=== PATIENT | male | born 1935 | race Two or more races ===

== ENCOUNTER 2020-04-05 17:10 | Inpatient (IN) | payer MEDICARE, OTHER ==
[~2020-04-05] VITALS: Ht 172.7 cm; Wt 44.4 kg
[2020-04-05] MEDS ORDERED: levoFLOXacin 750MG 150 ML IV ONE (20:15)
[2020-04-05 21:17] LABS: Basophils # (auto) 0 10 ^3/uL (0-0.2); Basophils % (auto) 0.2 % (0.0-2.0); Eosinophils # (auto) 0 10 ^3/uL (0-0.8); Hematocrit 44.4 % (41.0-53.0); Hemoglobin 15.1 g/dL (13.5-17.5); Lymphocytes # (auto) 0.7 10 ^3/uL (0.4-5.4); Lymphocytes % (auto) 8.2 % (10.0-50.0); Mean Corpuscular Hemoglobin 29.8 pg (28.0-32.0); Mean Corpuscular Hgb Conc. 33.9 g/dL (32.0-36.0); Monocytes # (auto) 0.6 10 ^3/uL (0-1.3); Neutrophils # (auto) 7.2 10 ^3/uL (1.6-8.6); Neutrophils % (auto) 84.6 % (37.0-80.0); Platelet Count (auto) 276 10^3/uL (140-450); Red Blood Cells 5.05 10^6/uL (4.5-5.90); Red Cell Distribution Width 13.8 % (11.8-14.3); White Blood Cell 8.5 10^3/uL (4.4-10.8)
[2020-04-05 21:30] LABS: Urine Amorphous Crystal FEW /hpf (None Seen); Urine Bacteria FEW /hpf (None Seen); Urine Blood 2+ /uL (Negative); Urine Mucus FEW (None Seen); Urine Specific Gravity 1.023 (1.001-1.035); Urine WBC 3 /hpf (0 - 3)
[2020-04-05 21:35] LABS: Albumin 2.8 g/dL (3.4-5.0); BUN/Creatinine Ratio 17.4; Calcium 8.2 mg/dL (8.5-10.1); Potassium 3.3 mmol/L (3.5-5.1)
[2020-04-05 21:38] LABS: Bilirubin, Total 1.2 mg/dL (0.2-1.0); Total Protein 7.3 g/dL (6.4-8.2)
[2020-04-05 21:45] LABS: INR 0.97 (0.9-1.15); Partial Thromboplastin Time 29.8 sec (23.0-31.2)
[2020-04-05] MEDS ORDERED: DOCUSATE SOD 100 MG CAP PO PRN (23:45)
[2020-04-05] MEDS ORDERED: ACETAMINOPHEN 500 MG TAB PO PRN (23:45)
[2020-04-05] MEDS ORDERED: ACETAMINOPHEN 325 MG TAB PO PRN (23:45)
[2020-04-05] MEDS ORDERED: DEXTROSE (50%) 50ML SYRG IV PRN (23:45)
[2020-04-05] MEDS ORDERED: ONDANSETRON HCL 4 MG/2 ML VIAL IV PRN (23:45)
[2020-04-06] VITALS (7 sets, daily range): BP systolic 119–169; BP diastolic 69–89
[2020-04-06] MEDS: SODIUM CHLORIDE 0.9% 1,000 ML IV SCH ×2 (00:40→18:36)
[2020-04-06] MEDS: ACCU-CHEK COMFORT CURVE STRIP VI SCH ×3 (00:40→09:49)
[2020-04-06] MEDS: InsuLIN REG 1unit/0.01ml Soln (100units/ml) SC SCH ×3 (04:00→08:00)
--- NOTE | 2020-04-06 04:29 | NUR ---
ms admit from er pt arrived awake and alert on 4L nc no distress noted or expressed. pt able to transfer from wheelchair to bed without incident. pt introduced to this nurse via desizing machine operator head end. pt updated on plan of care, oriented to room, bed control, restroom, use of call light. pt denies any pain. reports living at home with family and having hard time breathing and coughing for a few days. pt bed is locked, low and 2x rails up. call light in reach, no additional complaints or requests at this time. pt encouraged to call as needed. this nurse to round q1hr and prn.
--- NOTE | 2020-04-06 07:44 | NUR ---
OPENING SHIFT NOTE Assumed care of patient. PT is awake and a&ox4. No SOB or s/s of distress at this time. Instructed on plan of care and encouraged patient to call for assistance as needed, patient verbalized understanding. Bed is locked in lowest position, side rails x 2 are up, call light is within reach, and bed alarm is on.
[2020-04-06] MEDS: ALBUTEROL SULF HFA 90MCG INH 200DOSE IN SCH ×3 (08:59→22:02)
[2020-04-06] MEDS: ENOXAPARIN SOD 40 MG/0.4 ML SYRINGE SC SCH (09:59)
[2020-04-06] MEDS: ASCORBIC ACID 1,000 MG TAB PO SCH (09:59)
[2020-04-06] MEDS ORDERED: DOXYCYCLINE 100 MG TAB/CAP PO SCH (10:00)
[2020-04-06] MEDS: ZINC SULFATE 220mg CAP or TAB PO SCH (10:00)
[2020-04-06 10:53] LABS: Basophils # (auto) 0 10 ^3/uL (0-0.2); Basophils % (auto) 0.1 % (0.0-2.0); Eosinophils # (auto) 0 10 ^3/uL (0-0.8); Lymphocytes # (auto) 0.5 10 ^3/uL (0.4-5.4); Lymphocytes % (auto) 6.9 % (10.0-50.0); Mean Corpuscular Hemoglobin 30.5 pg (28.0-32.0); Mean Corpuscular Hgb Conc. 34.1 g/dL (32.0-36.0); Mean Corpuscular Volume 89.4 fL (80.0-100.0); Monocytes # (auto) 0.5 10 ^3/uL (0-1.3); Neutrophils # (auto) 6.6 10 ^3/uL (1.6-8.6); Nucleated Red Blood Cells % 0.1 %; Platelet Count (auto) 279 10^3/uL (140-450); Red Blood Cells 4.92 10^6/uL (4.5-5.90); Red Cell Distribution Width 13.9 % (11.8-14.3); White Blood Cell 7.5 10^3/uL (4.4-10.8)
[2020-04-06 11:12] LABS: Albumin 2.6 g/dL (3.4-5.0); Calcium 8.3 mg/dL (8.5-10.1); Potassium 3.1 mmol/L (3.5-5.1)
[2020-04-06 11:16] LABS: Bilirubin, Total 1.3 mg/dL (0.2-1.0); Total Protein 6.9 g/dL (6.4-8.2)
[2020-04-06 11:20] LABS: Magnesium 2.5 mg/dL (1.6-2.6)
[2020-04-06] MEDS ORDERED: POTASSIUM EFFERVESENT TAB 25 MEQ PO ONE (13:00)
[2020-04-06] MEDS ORDERED: ALBUTEROL SULF 2.5 MG/0.5ML(0.5%) NEB SOLN NEB PRN (13:00)
[2020-04-06] MEDS ORDERED: LACTULOSE 20Gm/30ML SOLN PO PRN (13:00)
[2020-04-06] MEDS ORDERED: ONDANSETRON HCL 4 MG/2 ML VIAL IV PRN (13:00)
[2020-04-06] MEDS ORDERED: MORPHINE SULF INJ 2 MG/ML SYRINGE 1ML IV PRN (13:00)
[2020-04-06] MEDS ORDERED: traMADol HCL 50 MG TAB PO PRN (13:00)
[2020-04-06] MEDS: CLINDAMYCIN 600MG IV 50 ML IV SCH ×2 (13:18→22:33)
[2020-04-06] MEDS ORDERED: IPRATROPIUM BROM 0.5 MG/2.5ML INH SOL NEB SCH (18:00)
[2020-04-06] MEDS ORDERED: ALBUTEROL SULF 2.5 MG/0.5ML(0.5%) NEB SOLN NEB SCH (18:00)
--- NOTE | 2020-04-07 03:00 | NUR ---
pt pulled out IV.
--- NOTE | 2020-04-07 03:10 | NUR ---
NEW IV placed at right AC, 22g. pt tolerated insertion well. one attempt
[2020-04-07 05:00] VITALS: BP 144/74
[2020-04-07] MEDS: CLINDAMYCIN 600MG IV 50 ML IV SCH ×2 (06:33→14:00)
--- NOTE | 2020-04-07 07:23 | NUR ---
closing note pt A&O4 and ambulatory. no c/o pain or distress. endorsed care to day shift RN Will.
[2020-04-07] MEDS: ALBUTEROL SULF HFA 90MCG INH 200DOSE IN SCH ×3 (07:51→22:32)
--- NOTE | 2020-04-07 08:12 | NUR ---
OPENING SHIFT NOTE Resumed care of patient. PT is awake and a&ox4. No SOB or s/s of distress at this time. PT expressed desire to leave hospital. Explained importance of current treatment plan. PT agreed. Instructed on plan of care and encouraged patient to call for assistance as needed, patient verbalized understanding. Bed is locked in lowest position, side rails x 2 are up, call light is within reach, and bed alarm is on.
[2020-04-07 09:00] VITALS: BP 146/75
[2020-04-07] MEDS: ENOXAPARIN SOD 40 MG/0.4 ML SYRINGE SC SCH (09:55)
[2020-04-07] MEDS: levoFLOXacin 250MG 50 ML IV SCH (09:55)
[2020-04-07] MEDS: ZINC SULFATE 220mg CAP or TAB PO SCH (09:55)
[2020-04-07] MEDS: SODIUM CHLORIDE 0.9% 1,000 ML IV SCH (09:56)
[2020-04-07] MEDS: ASCORBIC ACID 1,000 MG TAB PO SCH (09:56)
--- NOTE | 2020-04-07 11:31 | NUR ---
PT FOUND WITH IV PULLED OUT. CATHETER INTACT. PT IS REFUSING NEW IV PLACEMENT. WILL CONTINUE TO MONITOR.
[2020-04-07 13:00] VITALS: BP 137/85
--- NOTE | 2020-04-07 15:32 | NUR ---
MOVED PT ROOM 247B.
[2020-04-07 17:00] VITALS: BP 137/78
[2020-04-07 22:00] VITALS: BP 132/81
--- NOTE | 2020-04-07 23:30 | NUR ---
NEW IV placed at left AC 20g 1 attempt. pt tolerated insertion well.
[2020-04-08] MEDS: CLINDAMYCIN 600MG IV 50 ML IV SCH ×2 (00:02→05:43)
[2020-04-08 05:00] VITALS: BP 118/61
[2020-04-08] MEDS: SODIUM CHLORIDE 0.9% 1,000 ML IV SCH (05:20)
[2020-04-08] MEDS: ALBUTEROL SULF HFA 90MCG INH 200DOSE IN SCH ×3 (07:30→23:03)
--- NOTE | 2020-04-08 07:30 | NUR ---
Opening note Assumed care of patient from NOC RN. Patient is AOx2, no s/s of distress or SOB noted. Bed is in lowest locked position, side rails up x2 and call light is within reach. Updated patient on plan of care and reinforcement is needed. Will continue to monitor q1hr and PRN.
--- NOTE | 2020-04-08 07:34 | NUR ---
closing note pt A&O3 and ambulatory. no c/o pain or distress. endorsed care to day shift RN.
[2020-04-08 08:00] VITALS: BP 139/69
[2020-04-08] MEDS: levoFLOXacin 250MG 50 ML IV SCH (10:42)
[2020-04-08] MEDS: ASCORBIC ACID 1,000 MG TAB PO SCH (10:42)
[2020-04-08] MEDS: ENOXAPARIN SOD 40 MG/0.4 ML SYRINGE SC SCH (10:42)
[2020-04-08] MEDS: ZINC SULFATE 220mg CAP or TAB PO SCH (10:42)
--- NOTE | 2020-04-08 11:00 | NUR ---
Received call from Received call from Dr. Olson, updated MD on patient status and new orders were received. Will follow through and will continue to monitor.
[2020-04-08] MEDS ORDERED: levoFLOXacin 250 MG TAB PO ONE (11:15)
[2020-04-08] MEDS ORDERED: FUROSEMIDE 40 MG/4 ML VIAL IV ONE (11:15)
[2020-04-08 12:00] VITALS: BP 152/77
[2020-04-08 14:57] LABS: Basophils # (auto) 0 10 ^3/uL (0-0.2); Eosinophils # (auto) 0 10 ^3/uL (0-0.8); Eosinophils % (auto) 0.1 % (0.0-7.0); Hematocrit 42.9 % (41.0-53.0); Hemoglobin 14.1 g/dL (13.5-17.5); Lymphocytes # (auto) 0.3 10 ^3/uL (0.4-5.4); Lymphocytes % (auto) 4.2 % (10.0-50.0); Mean Corpuscular Hemoglobin 31.7 pg (28.0-32.0); Mean Corpuscular Hgb Conc. 32.9 g/dL (32.0-36.0); Mean Corpuscular Volume 96.5 fL (80.0-100.0); Monocytes # (auto) 0.6 10 ^3/uL (0-1.3); Monocytes % (auto) 7.8 % (0.0-12.0); Neutrophils # (auto) 6.8 10 ^3/uL (1.6-8.6); Neutrophils % (auto) 87.9 % (37.0-80.0); Nucleated Red Blood Cells % 0.1 %; Platelet Count (auto) 313 10^3/uL (140-450); Red Blood Cells 4.44 10^6/uL (4.5-5.90); Red Cell Distribution Width 14.5 % (11.8-14.3); White Blood Cell 7.8 10^3/uL (4.4-10.8)
[2020-04-08 15:16] LABS: BUN/Creatinine Ratio 33.3; Potassium 3.1 mmol/L (3.5-5.1)
[2020-04-08 17:00] VITALS: BP 136/81
--- NOTE | 2020-04-08 19:01 | NUR ---
end of shift note Endorsed care to NOC RN. No s/s of distress noted.
--- NOTE | 2020-04-08 21:00 | NUR ---
pt o2 saturation maintaining at 86% on 3Lnc. pt now placed on 5L oxymizer. rechecked o2 saturation, 97% on 5L oxymizer.
[2020-04-08 22:00] VITALS: BP 139/93
[2020-04-08] MEDS: ENOXAPARIN SOD 60 MG/0.6 ML SYRINGE SC SCH (23:42)
--- NOTE | 2020-04-09 04:40 | NUR ---
pt O2 saturation maintaining at 85% on 5L oxymizer. Increased to 11L oxymizer. rechecked o2 saturation, 92% on 11L oxymizer.
[2020-04-09 05:10] VITALS: BP 148/75
[2020-04-09 06:00] LABS: Basophils # (auto) 0 10 ^3/uL (0-0.2); Basophils % (auto) 0.1 % (0.0-2.0); Eosinophils # (auto) 0 10 ^3/uL (0-0.8); Hematocrit 38.5 % (41.0-53.0); Lymphocytes # (auto) 0.3 10 ^3/uL (0.4-5.4); Lymphocytes % (auto) 4.8 % (10.0-50.0); Mean Corpuscular Hemoglobin 31.4 pg (28.0-32.0); Mean Corpuscular Hgb Conc. 33.9 g/dL (32.0-36.0); Mean Corpuscular Volume 92.5 fL (80.0-100.0); Monocytes # (auto) 0.6 10 ^3/uL (0-1.3); Monocytes % (auto) 7.8 % (0.0-12.0); Neutrophils # (auto) 6.4 10 ^3/uL (1.6-8.6); Neutrophils % (auto) 87.3 % (37.0-80.0); Platelet Count (auto) 334 10^3/uL (140-450); Red Blood Cells 4.16 10^6/uL (4.5-5.90); White Blood Cell 7.3 10^3/uL (4.4-10.8)
[2020-04-09 06:26] LABS: Calcium 7.6 mg/dL (8.5-10.1)
[2020-04-09 06:30] LABS: BUN/Creatinine Ratio 34.8; Bilirubin, Total 0.8 mg/dL (0.2-1.0); Total Protein 5.9 g/dL (6.4-8.2)
[2020-04-09 06:39] LABS: Potassium 2.9 mmol/L (3.5-5.1)
--- NOTE | 2020-04-09 06:44 | NUR ---
critical lab: Potassium 2.9, hospitalist paged
--- NOTE | 2020-04-09 06:53 | NUR ---
hospitalist Miguel new orders received: Potassium ER PO 40meq once. orders read back and verified.
[2020-04-09] MEDS ORDERED: POTASSIUM CHL 20 Meq TABLET PO ONE (07:00)
--- NOTE | 2020-04-09 07:31 | NUR ---
closing note pt resting in semi fowlers with HOB at 30 degrees. no s/s of pain or distress. pt currently on 15 liters oxymizer. endorsed care to day shift CLARI Judge.
[2020-04-09] MEDS: ALBUTEROL SULF HFA 90MCG INH 200DOSE IN SCH ×3 (07:56→21:04)
[2020-04-09 08:00] VITALS: BP 147/70
[2020-04-09] MEDS ORDERED: levoFLOXacin 500 MG TAB PO SCH (10:00)
[2020-04-09] MEDS: ENOXAPARIN SOD 60 MG/0.6 ML SYRINGE SC SCH ×2 (11:39→21:35)
[2020-04-09] MEDS: FUROSEMIDE 40 MG/4 ML VIAL IV SCH (11:39)
[2020-04-09] MEDS: ZINC SULFATE 220mg CAP or TAB PO SCH (11:39)
[2020-04-09] MEDS: ASCORBIC ACID 1,000 MG TAB PO SCH (11:39)
[2020-04-09 12:00] VITALS: BP 139/71
--- NOTE | 2020-04-09 12:10 | NUR ---
oxygenation On room air patient desaturates to 77%. patient on 15L via Oxymizer saturation is at 87%. Patient placed on simple mask on 15L simple mask. Patient is not short of breath, no signs and symptoms of distress noted. Will continue to monitor.
[2020-04-09] MEDS ORDERED: POTASSIUM EFFERVESENT TAB 25 MEQ PO ONE (12:15)
--- NOTE | 2020-04-09 12:24 | NUR ---
Live GILMAN Placed page to Dr. Olson. Awaiting call back.
--- NOTE | 2020-04-09 12:27 | NUR ---
Received call back Received call back from Dr. Olson. Updated MD on change of patient status, no new orders received.
--- NOTE | 2020-04-09 12:38 | NUR ---
OXYGENATION Patient placed on 15L via non-rebreather, saturations are now at 88-90%. No shortness of breath or s/s of distress noted. Will continue to monitor.
--- NOTE | 2020-04-09 12:49 | NUR ---
Physician rounding Dr. Singh at bedside. New orders received, will follow through.
--- NOTE | 2020-04-09 12:55 | NUR ---
Physician rounding Dr. Olson at bedside. Updated MD on patient status. Per MD translation is needed in order to communicate with daughter. Called daughter with MD present, left 2 messages with call back number. Awaiting call back from patients daughter. Addendum: 04/09/20 at 1257 by BERNARD DONATO RN Per consent is needed from daughter for convalescent plasma and remdesivir due to patient being AOx2.
--- NOTE | 2020-04-09 13:00 | NUR ---
Telephone consent Dr. Olson present at nurses station when telephone consent was received for convalescent plasma and remdesivir. Spoke with patients daughter Milady Lopes, Milady was educated and informed about the treatments and their risk and benefits. Milady verbalized understanding and gave consent for treatment. Consents were signed by Mirela Alcantar RN and Dolores Hernandez RN.
[2020-04-09] MEDS ORDERED: IOHEXOL 350 MG/ML 100ML IJ ONE (13:03)
--- NOTE | 2020-04-09 13:10 | NUR ---
Called [facility] Called [facility] sup, spoke with Rosa regarding convalescent plasma order. Per Rosa GILMAN approval from Dr. Iyer or Dr. Dalal is required, as well as a type and screen before plasma can be ordered. Will page Dr. Iyer and will place order for type and screen per protocol. Will call back house sup as soon as type and screen results.
[2020-04-09 13:13] VITALS: BP 139/71
--- NOTE | 2020-04-09 13:32 | NUR ---
Live GILMAN Paged for Dr. Jaylon brown for approval of convalescent plasma, awaiting call back.
--- NOTE | 2020-04-09 13:34 | NUR ---
Received call back Received call back from Dr. Iyer. Updated MD regarding patient status and ordered convalescent plasma, MD stated approval and to continue the order. Will inform pump house engineer.
[2020-04-09] MEDS ORDERED: DexAMETHasone SOD PHOS 10MG/1ML VIAL INJ IV ONE (13:45)
[2020-04-09] MEDS ORDERED: PIPERACILLIN-TAZO 4.5GM 100 ML IV ONE (13:45)
--- NOTE | 2020-04-09 13:50 | NUR ---
IV insertion IV access obtained, via clean sterile technique by inserting 20 gauge catheter at right wrist after 1 attempt. IV secured properly. No trauma to site. Patient tolerated well.
--- NOTE | 2020-04-09 13:54 | NUR ---
Patient of unit patient taken to CT via gurney. No s/s of distress noted.
--- NOTE | 2020-04-09 14:15 | NUR ---
Patient back on unit Patient back on unit, no s/s of distress noted. Will continue to monitor.
--- NOTE | 2020-04-09 14:16 | NUR ---
Aspiration precautions Aspiration precautions in place. HOB elevated, suction at bedside. Will continue to monitor.
--- NOTE | 2020-04-09 15:33 | NUR ---
Nutrition Assessment Notes Please refer to link for full assessment notes. Est Energy needs: 4219-4748 kcals (25-30 kcal/kgBW) d/t pt is underweight Est Protein needs: 70-77 gms/day (1.0-1.1 gm/kgIBW) d/t pt is underweight Will continue to monitor and reassess prn. Addendum: 04/09/20 at [address] Amended: Links added.
--- NOTE | 2020-04-09 16:04 | NUR ---
assessment Patient is a 85 year old male who is covid positive in the covid unit. Per patients daughter Milady Lopes [phone] prior to admission patient lived home with her and family and was independent. Patient has no need for DME or oxygen prior to admission. Per Milady she has tested negative. Per Milady patient will return home on discharge and she will transport patient home. I informed Milady I will continue to monitor and follow up as appropriate. Milady verbalized understanding. Addendum: 04/09/20 at 1607 by Leidy PERSAUD Amended: Links added.
[2020-04-09 17:00] VITALS: BP 119/73
[2020-04-09] MEDS ORDERED: REMDESIVIR 200 MG in NS 210ml LOADING DOSE ADULT IV ONE (17:00)
--- NOTE | 2020-04-09 17:20 | NUR ---
Oxygen titration Patient taken off non-rebreather on 15 L to 11L on Oxymizer. Patients O2 saturation is 93-95% no signs and symptoms of distress or SOB noted. Will continue to monitor.
--- NOTE | 2020-04-09 18:22 | NUR ---
Remdesivir Vitals pre infusion: 63bpm, 118/58. Vitals at 1737 after infusion start: 63bpm, 121/66. Vitals post infusion: 68bpm, 126/69. No signs and symptoms of distress or shortness of breath noted. IV is patent, non tender and intact. Educated patient to call for assistance, patient verbalized understanding but reinforcement is needed.
--- NOTE | 2020-04-09 19:15 | NUR ---
Opening Shift Note Received report from darryl Dietz RN. Assumed care of patient, awake and alert. No S/S of distress/SOB or pain. Saturating at 93% on 11L on Oxymizer. Instructed on POC and to call for assist PRN, will continue to monitor for changes Q1hr and PRN. Bed placed in lowest position, bed alarm turned on and call light within reach.
--- NOTE | 2020-04-09 19:15 | NUR ---
end of shift note endorsed care to NOC RN. No s/s of distress noted. Informed NOC RN that type and screen has not resulted. Once results are in, plumbing warehouse helper is to be notified.
[2020-04-09] MEDS: BUDESONIDE (INHALATION) 180 MCG IH IN SCH (21:04)
[2020-04-09] MEDS: PIPERACILLIN-TAZO 4.5GM 100 ML IV SCH (21:35)
[2020-04-09 22:00] VITALS: BP 137/69
[2020-04-10] VITALS (8 sets, daily range): BP systolic 121–145; BP diastolic 61–80
[2020-04-10 05:47] LABS: Basophils # (auto) 0 10 ^3/uL (0-0.2); Basophils % (auto) 0.4 % (0.0-2.0); Eosinophils # (auto) 0 10 ^3/uL (0-0.8); Hematocrit 39.7 % (41.0-53.0); Hemoglobin 13.5 g/dL (13.5-17.5); Lymphocytes # (auto) 0.4 10 ^3/uL (0.4-5.4); Lymphocytes % (auto) 7.1 % (10.0-50.0); Mean Corpuscular Hemoglobin 30.4 pg (28.0-32.0); Mean Corpuscular Volume 89.3 fL (80.0-100.0); Monocytes # (auto) 0.5 10 ^3/uL (0-1.3); Monocytes % (auto) 9.8 % (0.0-12.0); Neutrophils # (auto) 4.4 10 ^3/uL (1.6-8.6); Neutrophils % (auto) 82.7 % (37.0-80.0); Nucleated Red Blood Cells % 0.1 %; Platelet Count (auto) 367 10^3/uL (140-450); Red Blood Cells 4.45 10^6/uL (4.5-5.90); Red Cell Distribution Width 13.8 % (11.8-14.3); White Blood Cell 5.3 10^3/uL (4.4-10.8)
[2020-04-10 06:12] LABS: BUN/Creatinine Ratio 35.7; Calcium 7.8 mg/dL (8.5-10.1)
[2020-04-10] MEDS: PIPERACILLIN-TAZO 4.5GM 100 ML IV SCH ×3 (06:15→21:39)
[2020-04-10] MEDS: ALBUTEROL SULF HFA 90MCG INH 200DOSE IN SCH ×3 (07:02→22:02)
[2020-04-10] MEDS: BUDESONIDE (INHALATION) 180 MCG IH IN SCH ×3 (07:02→22:02)
--- NOTE | 2020-04-10 07:03 | NUR ---
INCREASED OXYMIZER TO 13LPM DUE TO LOW O2 SAT 88%. ADMINISTERED MDI THERAPY WITH NO ADVERSE REACTIONS. HR 62, RR 22, SPO2 92% ON OXYMIZER 13LPM. NO S/S OF DISTRESS.
[2020-04-10] MEDS: ZINC SULFATE 220mg CAP or TAB PO SCH (08:51)
[2020-04-10] MEDS: ASCORBIC ACID 1,000 MG TAB PO SCH (08:51)
[2020-04-10] MEDS: ENOXAPARIN SOD 60 MG/0.6 ML SYRINGE SC SCH ×2 (08:51→21:39)
[2020-04-10] MEDS: DexAMETHasone SOD PHOS 10MG/1ML VIAL INJ IV SCH (08:52)
[2020-04-10] MEDS: FUROSEMIDE 40 MG/4 ML VIAL IV SCH (08:52)
--- NOTE | 2020-04-10 12:10 | NUR ---
SPOKE TO Nara LÓPEZ REGARDING PATIENTS POTASSIUM AND BLOOD BANK ORDER BEING CANCELLED. INSTRUCTED TO REPLACE BBK ORDER. INFORMED OF PATIENTS OXYGENATION STATUS. RECEIVED NEW ORDERS. SEE EMR. WILL FOLLOW THROUGH.
[2020-04-10] MEDS ORDERED: POTASSIUM EFFERVESENT TAB 25 MEQ PO ONE (12:15)
--- NOTE | 2020-04-10 12:15 | NUR ---
SPOKE TO PHYSICAL THERAPY IN REGARDS TO HAVING SPEECH THERAPIST COME BY TO DO SWALLOW EVAL. PER SRINIVASAN PHYSICAL THERAPY SHE WILL BE NOTIFIED.
[2020-04-10] MEDS ORDERED: DOXYCYCLINE 100 MG TAB/CAP PO ONE (13:00)
--- NOTE | 2020-04-10 13:15 | NUR ---
CALLED TERESA IN IT REGARDING PATIENTS CONVALESCENT PLASMA BEING CANCELLED. LEFT VOICE MESSAGE AWAITING CALL BACK.
--- NOTE | 2020-04-10 14:59 | NUR ---
SPOKE TO YUMIKO FROM IT AND INFORMED OF ISSUES WITH ORDERING CONVALESCENT PLASMA. STATED SHE WOULD WORK ON A SOLUTION AND CALL THIS RN BACK.
--- NOTE | 2020-04-10 15:28 | NUR ---
SPOKE WITH BLOOD BANK STATING THEY DID RECEIVE ORDER FOR BLOOD.
--- NOTE | 2020-04-10 16:34 | NUR ---
SPEECH THERAPIST AT BEDSIDE.
--- NOTE | 2020-04-10 17:01 | NUR ---
SWALLOW EVALUATED. PATIENT HAS DENTURES WHICH SHOULD BE IN FOR ALL PO INTAKE. PATIENT ABLE TO FOLLOW DIRECTIONS RESPONDING TO COLLISION CENTER MANAGER GESTURES PATIENT SPEAKS [place]. PATIENT ABLE TO TOLERATE MECHANICAL SOFT DIET TEXTURE WITH THIN LIQUIDS WITH NO OVERT SIGNS OR SYMPTOMS OF ASPIRATION. NURSING NOTIFIED.
[2020-04-10] MEDS: REMDESIVIR 100mg in NS 230ml DAILYx4DAYS (NO VENT) IV SCH (17:45)
--- NOTE | 2020-04-10 19:25 | NUR ---
Opening Shift Note Received report from darryl Clifton RN. Assumed care of patient, awake and alert. Hungarian speaking only. No S/S of distress/SOB or pain. Saturating at 93% on 12L on Oxymizer. Instructed on POC and to call for assist PRN, will continue to monitor for changes Q1hr and PRN. Bed placed in lowest position, bed alarm turned on and call light within reach.
[2020-04-10] MEDS: DOXYCYCLINE 100 MG TAB/CAP PO SCH (21:38)
[2020-04-11] VITALS (10 sets, daily range): BP systolic 104–141; BP diastolic 60–73
--- NOTE | 2020-04-11 06:16 | NUR ---
ROUNDS Patient is resting in bed with eyes closed, no distress noted and patient denies pain. Patient is saturating at 92% on 12L Oxymizer.
[2020-04-11] MEDS: PIPERACILLIN-TAZO 4.5GM 100 ML IV SCH ×3 (06:31→21:55)
[2020-04-11 08:04] LABS: Albumin 2.1 g/dL (3.4-5.0); Potassium 3.1 mmol/L (3.5-5.1)
[2020-04-11 08:06] LABS: BUN/Creatinine Ratio 37.6
[2020-04-11 08:17] LABS: Bilirubin, Total 0.8 mg/dL (0.2-1.0); Total Protein 6.7 g/dL (6.4-8.2)
[2020-04-11] MEDS ORDERED: POTASSIUM CHL 20 Meq TABLET PO ONE (09:15)
--- NOTE | 2020-04-11 10:11 | NUR ---
REGARDING CODE STATUS. SPOKE WITH DAUGHTER KATRIN REGARDING PATIENT CODE STATUS. PER DAUGHTER KATRIN, SHE SPOKE TO FAMILY AND HAS DECIDED THEY DO NOT WISH FOR ANY INTERVENTIONS IN THE CASE OF PATIENT LOSING PULSE. STATED THEY WISH TO MAKE HI DNR STATUS. WILL INFORM Nara LÓPEZ
[2020-04-11] MEDS: DexAMETHasone SOD PHOS 10MG/1ML VIAL INJ IV SCH (10:32)
[2020-04-11] MEDS: ZINC SULFATE 220mg CAP or TAB PO SCH (10:32)
[2020-04-11] MEDS: ENOXAPARIN SOD 60 MG/0.6 ML SYRINGE SC SCH ×2 (10:33→21:59)
[2020-04-11] MEDS: DOXYCYCLINE 100 MG TAB/CAP PO SCH ×2 (10:33→21:59)
[2020-04-11] MEDS: POTASSIUM EFFERVESENT TAB 25 MEQ PO SCH (10:33)
[2020-04-11] MEDS: ASCORBIC ACID 1,000 MG TAB PO SCH (10:33)
[2020-04-11] MEDS: FUROSEMIDE 40 MG/4 ML VIAL IV SCH (10:33)
[2020-04-11] MEDS: BUDESONIDE (INHALATION) 180 MCG IH IN SCH ×2 (12:36→23:45)
[2020-04-11] MEDS: ALBUTEROL SULF HFA 90MCG INH 200DOSE IN SCH ×3 (12:37→23:45)
--- NOTE | 2020-04-11 12:58 | NUR ---
Nara LÓPEZ AT BEDSIDE. INFORMED OF PATIENT STATUS INCLUDING PATIENTS VITALS AND CURRENT OXYGEN USE. INFORMED PATIENT IS ON 12L OXYMIZER AND ALSO INFORMED OF PATIENTS CT CHEST RESULTS. STATED CHIEF OF HARBOR PATROL WOULD SPEAK TO PATIENTS FAMILY ABOUT FINDINGS.
[2020-04-11] MEDS: REMDESIVIR 100mg in NS 230ml DAILYx4DAYS (NO VENT) IV SCH (16:42)
--- NOTE | 2020-04-11 19:46 | NUR ---
Opening Shift Note Assumed care of patient after receiving report. Patient is awake and alert with no S/S of distress/SOB or pain. Call light within reach, bed in lowest locked position x2 side rails, HOB semi fowlers. Instructed on POC and to call for assist PRN, will continue to monitor for changes Q1hr and PRN.
[2020-04-12] VITALS (10 sets, daily range): BP systolic 112–141; BP diastolic 58–79
[2020-04-12] MEDS: PIPERACILLIN-TAZO 4.5GM 100 ML IV SCH ×3 (05:36→21:55)
[2020-04-12 07:18] LABS: Calcium 7.8 mg/dL (8.5-10.1); Potassium 3.2 mmol/L (3.5-5.1)
[2020-04-12] MEDS: ALBUTEROL SULF HFA 90MCG INH 200DOSE IN SCH ×3 (07:21→22:14)
[2020-04-12] MEDS: BUDESONIDE (INHALATION) 180 MCG IH IN SCH ×2 (07:21→22:14)
[2020-04-12 07:24] LABS: Albumin 2.1 g/dL (3.4-5.0); BUN/Creatinine Ratio 39.5; Bilirubin, Total 0.8 mg/dL (0.2-1.0); Total Protein 5.8 g/dL (6.4-8.2)
[2020-04-12] MEDS ORDERED: POTASSIUM CHL 20 Meq TABLET PO ONE (09:15)
[2020-04-12] MEDS: DexAMETHasone SOD PHOS 10MG/1ML VIAL INJ IV SCH (10:30)
[2020-04-12] MEDS: ZINC SULFATE 220mg CAP or TAB PO SCH (10:30)
[2020-04-12] MEDS: ASCORBIC ACID 1,000 MG TAB PO SCH (10:31)
[2020-04-12] MEDS: ENOXAPARIN SOD 60 MG/0.6 ML SYRINGE SC SCH ×2 (10:31→21:55)
[2020-04-12] MEDS: POTASSIUM EFFERVESENT TAB 25 MEQ PO SCH (10:31)
[2020-04-12] MEDS: DOXYCYCLINE 100 MG TAB/CAP PO SCH ×2 (10:31→21:55)
[2020-04-12] MEDS: FUROSEMIDE 40 MG/4 ML VIAL IV SCH (10:32)
--- NOTE | 2020-04-12 11:23 | NUR ---
PATIENT BED LINEN CHANGED WITH ASSISTANCE OF JACQUARD LOOM HEDDLES TIER. PATIENT ON 15L NON REBREATHER WITH OXYGEN SATURATIONS AT 87-88%. PATIENT PLACED ON 15L NON REBREATHER WITH 4L NC. OXYGEN SATURATIONS AT 92%. WILL CONTINUE TO MONITOR.
[2020-04-12] MEDS: Glucerna Carbsteady SHAKE Vanilla 8oz PO SCH ×2 (12:00→18:00)
--- NOTE | 2020-04-12 12:38 | NUR ---
Nara PAREDES AT BEDSIDE TO SEE PATIENT. INFORMED OF PATIENTS INCREASING OXYGEN DEMAND ALONG WITH CURRENT VITALS. PATIENT STATED "I WANT TO " IN FRONT OF Nara PAREDES. Nara PAREDES SPOKE AND UPDATED DAUGHTER KATRIN ON CT FINDINGS WITH THIS RN PRESENT.
--- NOTE | 2020-04-12 13:57 | NUR ---
SPOKE TO Nara LÓPEZ ABOUT PATIENT STATUS, INFORMED OF PATIENTS OXYGEN STATUS. ALSO INFORMED OF PATIENT VERBALIZING WISHING HE WAS . NO NEW ORDERS RECEIVED AT THIS TIME.
--- NOTE | 2020-04-12 14:30 | NUR ---
Nara LÓPEZ AT BEDSIDE TO SEE PATIENT.
--- NOTE | 2020-04-12 14:46 | NUR ---
Nutrition Followup Notes Wt: 47.1 kg Unable to speak to pt d/t pt is positive for COVID. Pt is with a [facility] soft diet, with adequate Po of 75% x 3 per RN doc Est Energy needs: 5085-9787 kcals (25-30 kcal/kgBW) d/t pt is underweight, Est Protein needs: 70-77 gms/day (1.0-1.1 gm/kgIBW) d/t pt is underweight. Will continue to monitor and reassess prn. LABS: CA 7.8 L, BUN 34 H ALB 2.1 L GI: Pt has no BM reported per RN doc BS: 19 low risk. Refer to wound assessment report for full details. PES: 1) Partially resolved: Inadequate oral intake aeb ave 46% PO intake over 4 meals r/t pt with a poor appetite 2) Underweight aeb 72% IBW abd BMI of 16.9 kg/m2 r/t energy intake less than energy needs Comments Will continue to monitor PO status, skin status, pertinent labs and weight trends. Will f/u in 3-5 days. 1) If pt appetite remains <50% PO intake, consider nutrition supplement Ensure Enlive 1 ctn bid. 2) Continue current plan of care Addendum: 04/12/20 at [address] Rec: consider prostat 1 packet bid as alb is low
[2020-04-12] MEDS: REMDESIVIR 100mg in NS 230ml DAILYx4DAYS (NO VENT) IV SCH (16:33)
[2020-04-13] VITALS (8 sets, daily range): BP systolic 118–152; BP diastolic 56–75
[2020-04-13] MEDS: PIPERACILLIN-TAZO 4.5GM 100 ML IV SCH ×3 (06:10→22:00)
[2020-04-13] MEDS: ALBUTEROL SULF HFA 90MCG INH 200DOSE IN SCH ×3 (07:08→23:00)
[2020-04-13] MEDS: BUDESONIDE (INHALATION) 180 MCG IH IN SCH ×2 (07:08→23:00)
[2020-04-13] MEDS: Glucerna Carbsteady SHAKE Vanilla 8oz PO SCH ×3 (08:00→17:34)
[2020-04-13] MEDS: DexAMETHasone SOD PHOS 10MG/1ML VIAL INJ IV SCH (11:03)
[2020-04-13] MEDS: POTASSIUM EFFERVESENT TAB 25 MEQ PO SCH (11:04)
[2020-04-13] MEDS: FUROSEMIDE 40 MG/4 ML VIAL IV SCH (11:04)
[2020-04-13] MEDS: ASCORBIC ACID 1,000 MG TAB PO SCH (11:04)
[2020-04-13] MEDS: ZINC SULFATE 220mg CAP or TAB PO SCH (11:04)
[2020-04-13] MEDS: DOXYCYCLINE 100 MG TAB/CAP PO SCH ×2 (11:04→22:00)
[2020-04-13] MEDS: ENOXAPARIN SOD 40 MG/0.4 ML SYRINGE SC SCH ×2 (11:05→22:00)
[2020-04-13] MEDS ORDERED: POTASSIUM CHL 20 Meq TABLET PO ONE (13:15)
[2020-04-13] MEDS: REMDESIVIR 100mg in NS 230ml DAILYx4DAYS (NO VENT) IV SCH (17:33)
--- NOTE | 2020-04-13 19:25 | NUR ---
OPENING SHIFT NOTE Assumed care of patient who is A&O x4. Currently on 12L via Oxymizer. Spo2 is 97%. Titrated down to 10L. Patient reports mild body aches at this time. PIVs in right and left AC are intact and patent. Both flushed with 10ml NS. Patient turned to left side. HOB elevated and patient's food opened and placed in front of him to eat. Bed is in low locked position with side rails up x2. Call light is within reach and patient encouraged to call for assistance when needed. Will continue to monitor for changes PRN.
--- NOTE | 2020-04-14 02:04 | NUR ---
Patient cleansed after small soft brown BM. Tolerated well. Positioned onto left side. Pulse ox probe and telemetry leads changed. Dry cough noted. Currently on 12L via Oxymizer with a saturation of 90%
--- NOTE | 2020-04-14 03:10 | NUR ---
Patient assisted onto bedside commode and had a medium soft BM. Patient desaturated to 85% while standing at bedside. Patient assisted back into bed and positioned onto right side. Oxygen saturation increased to 92%
[2020-04-14 05:00] VITALS: BP 126/57
[2020-04-14] MEDS: PIPERACILLIN-TAZO 4.5GM 100 ML IV SCH ×3 (05:44→22:00)
[2020-04-14 06:38] LABS: Potassium 3.5 mmol/L (3.5-5.1)
[2020-04-14 06:44] LABS: BUN/Creatinine Ratio 43.9; Calcium 8.3 mg/dL (8.5-10.1)
[2020-04-14] MEDS: BUDESONIDE (INHALATION) 180 MCG IH IN SCH ×2 (06:58→22:44)
[2020-04-14] MEDS: ALBUTEROL SULF HFA 90MCG INH 200DOSE IN SCH ×3 (06:58→22:44)
--- NOTE | 2020-04-14 07:34 | NUR ---
OXYGEN SATURATIONS AT 71% ON PULSE OXIMETER, THIS RN ENTERED ROOM TO ASSESS PATIENT, PATIENT HAD REMOVED OXYMIZER. PATIENT PLACED BACK ON OXYMIZER AT 12L. OXYGEN SATURATIONS NOW AT 93%. PATIENT REORIENTED TO NEED OF OXYMIZER. PATIENT STILL CONFUSED AT THIS TIME. WILL CONTINUE TO MONITOR.
[2020-04-14] MEDS: Glucerna Carbsteady SHAKE Vanilla 8oz PO SCH ×3 (08:10→18:00)
[2020-04-14 08:21] VITALS: BP 150/76
[2020-04-14] MEDS: ENOXAPARIN SOD 40 MG/0.4 ML SYRINGE SC SCH ×2 (09:45→22:00)
[2020-04-14] MEDS: ASCORBIC ACID 1,000 MG TAB PO SCH (09:45)
[2020-04-14] MEDS: POTASSIUM EFFERVESENT TAB 25 MEQ PO SCH (09:45)
[2020-04-14] MEDS: DexAMETHasone SOD PHOS 10MG/1ML VIAL INJ IV SCH (09:45)
[2020-04-14] MEDS: DOXYCYCLINE 100 MG TAB/CAP PO SCH ×2 (09:45→22:00)
[2020-04-14] MEDS: ZINC SULFATE 220mg CAP or TAB PO SCH (09:45)
[2020-04-14] MEDS: FUROSEMIDE 20 MG/2 ML VIAL IV SCH (09:46)
[2020-04-14 13:08] VITALS: BP 117/70
[2020-04-14 17:00] VITALS: BP 116/63
[2020-04-14 22:00] VITALS: BP 166/76
--- NOTE | 2020-04-15 00:10 | NUR ---
IV removal IV to left AC DC'd with clean sterile technique, catheter fully intact. Pressure dressing applied to site. Patient tolerated well.
--- NOTE | 2020-04-15 00:20 | NUR ---
IV insertion IV access obtained, via clean sterile technique by inserting 20 gauge catheter at right AC after 1 attempt. IV secured properly. No trauma to site. Patient tolerated well.
--- NOTE | 2020-04-15 02:14 | NUR ---
OPENING SHIFT NOTE Assumed care of patient who is A&O x2. Currently on 10L via Oxymizer. Spo2 is 98%. Titrated down to 9L at this time. PIV to right wrist infiltrated. IV DC'd with clean sterile technique, catheter fully intact. Pressure dressing applied to site. Patient tolerated well. Patient cleansed, CHUX, gown and sheet changed. Bed is in low locked position and side rails up x2. Call light is within reach and patient encouraged to call for assistance when needed. Bed alarm activated for patient safety. Will continue to monitor for changes PRN.
[2020-04-15 05:00] VITALS: BP 164/83
--- NOTE | 2020-04-15 05:06 | NUR ---
BOWEL MOVEMENT/DESATURATION Patient assisted onto BSC. Spo2 decreased to 77% on 9L Oxymizer. Increased to 15L. Once patient was assisted back into bed, O2 decreased to 12L and spo2 is 91%.
[2020-04-15] MEDS: PIPERACILLIN-TAZO 4.5GM 100 ML IV SCH ×3 (06:33→21:36)
[2020-04-15] MEDS: BUDESONIDE (INHALATION) 180 MCG IH IN SCH ×2 (06:40→21:23)
[2020-04-15] MEDS: ALBUTEROL SULF HFA 90MCG INH 200DOSE IN SCH ×3 (06:40→21:23)
--- NOTE | 2020-04-15 06:46 | NUR ---
BLOOD PRESSURE ICHTHYOLOGY TEACHER obtained and reported a BP of 164/83, HR 74. Reassessed by this RN and BP is 119/52, HR 74.
[2020-04-15 08:00] VITALS: BP 119/86
[2020-04-15] MEDS: Glucerna Carbsteady SHAKE Vanilla 8oz PO SCH ×3 (08:08→18:00)
[2020-04-15] MEDS: DexAMETHasone SOD PHOS 10MG/1ML VIAL INJ IV SCH (10:25)
[2020-04-15] MEDS: ZINC SULFATE 220mg CAP or TAB PO SCH (10:26)
[2020-04-15] MEDS: ASCORBIC ACID 1,000 MG TAB PO SCH (10:26)
[2020-04-15] MEDS: POTASSIUM EFFERVESENT TAB 25 MEQ PO SCH (10:26)
[2020-04-15] MEDS: DOXYCYCLINE 100 MG TAB/CAP PO SCH ×2 (10:26→21:36)
[2020-04-15] MEDS: FUROSEMIDE 20 MG/2 ML VIAL IV SCH (10:26)
[2020-04-15] MEDS: ENOXAPARIN SOD 40 MG/0.4 ML SYRINGE SC SCH ×2 (10:27→21:36)
[2020-04-15 12:00] VITALS: BP 137/74
--- NOTE | 2020-04-15 14:50 | NUR ---
Nutrition Followup Notes Wt: 43.2 kg Unable to speak to pt d/t pt is positive for COVID. Pt is with a [facility] soft diet, with inadequate Po of ave of 7% x 3 meals per RN doc. Refer to nutrition recommendations noted below under Comments. If pt appetite remains negligible over the next 48 hours consider Osmolite 1.2 @ 50 ml/hr goal rate as tolerated and per MD approval. Est Energy needs: 1698-9739 kcals (25-30 kcal/kgBW) d/t pt is underweight, Est Protein needs: 70-77 gms/day (1.0-1.1 gm/kgIBW) d/t pt is underweight. Will continue to monitor and reassess prn. LABS: CA 7.8 L, BUN 34 H ALB 2.1 L GI: Pt has no BM reported per RN doc BS: 19 low risk. Refer to wound assessment report for full details. PES: 1) Partially resolved: Inadequate oral intake aeb ave 46% PO intake over 4 meals r/t pt with a poor appetite 2) Underweight aeb 72% IBW abd BMI of 16.9 kg/m2 r/t energy intake less than energy needs Comments Will continue to monitor PO status, skin status, pertinent labs and weight trends. Will f/u in 3-5 days. 1) If pt appetite remains negligible over the next 48 hours consider Osmolite 1.2 @ 50 ml/hr goal rate as tolerated and per MD approval 2) If pt appetite remains <50% PO intake, consider nutrition supplement Ensure Enlive 1 ctn bid. 3) Consider prostat 1 packet bid as alb is low 4) Continue current plan of care
[2020-04-15 17:00] VITALS: BP 134/78
--- NOTE | 2020-04-15 19:45 | NUR ---
Opening Shift Note Assumed care of patient, awake and alert. No S/S of distress/SOB or pain. Instructed on POC and to call for assist PRN, will continue to monitor for changes Q1hr and PRN.
[2020-04-15 20:00] VITALS: BP 145/81
[2020-04-15 22:00] VITALS: BP 145/81
[2020-04-16 05:00] VITALS: BP 122/75
--- NOTE | 2020-04-16 06:00 | NUR ---
Wound Pictures Inner tights pictures taken.
[2020-04-16] MEDS: PIPERACILLIN-TAZO 4.5GM 100 ML IV SCH ×3 (06:10→21:41)
[2020-04-16] MEDS: ALBUTEROL SULF HFA 90MCG INH 200DOSE IN SCH ×3 (06:42→21:40)
[2020-04-16] MEDS: BUDESONIDE (INHALATION) 180 MCG IH IN SCH ×2 (06:42→21:40)
[2020-04-16 08:00] VITALS: BP 124/69
[2020-04-16] MEDS: Glucerna Carbsteady SHAKE Vanilla 8oz PO SCH ×3 (08:00→18:00)
[2020-04-16] MEDS: DOXYCYCLINE 100 MG TAB/CAP PO SCH ×2 (10:00→21:40)
--- NOTE | 2020-04-16 10:00 | NUR ---
Regarding Doxy PO, per pharmacy, awaiting on order and it has not arrived for PO at this time. Unable to medicate as ordered.
[2020-04-16] MEDS: DexAMETHasone SOD PHOS 10MG/1ML VIAL INJ IV SCH (11:17)
[2020-04-16] MEDS: FUROSEMIDE 20 MG/2 ML VIAL IV SCH (11:18)
[2020-04-16] MEDS: POTASSIUM EFFERVESENT TAB 25 MEQ PO SCH (11:18)
[2020-04-16] MEDS: ZINC SULFATE 220mg CAP or TAB PO SCH (11:19)
[2020-04-16] MEDS: ASCORBIC ACID 1,000 MG TAB PO SCH (11:20)
[2020-04-16] MEDS: ENOXAPARIN SOD 40 MG/0.4 ML SYRINGE SC SCH ×2 (11:21→21:41)
--- NOTE | 2020-04-16 11:49 | NUR ---
Nutrition Consult/Followup Notes Wt: 45.0 kg Unable to speak to pt d/t pt is positive for COVID. Pt is with a [facility] soft diet, with inadequate po intake aeb pt with multiple 0% po intake. Pt with Glucerna 1 carton TID. Consider alternate nutrition if pt continues to have poor po intake. Est Energy needs: 4307-7711 kcals (25-30 kcal/kgBW) d/t pt is underweight, Est Protein needs: 70-77 gms/day (1.0-1.1 gm/kgIBW) d/t pt is underweight. Will continue to monitor and reassess prn. LABS: No new labs, labs from 04/14: CA 7.8 L, BUN 34 H ALB 2.1 L GI: Pt with 2 BMs reported 04/15 per RN doc BS: 12 high risk. Refer to wound assessment report for full details. PES: 1) Partially resolved: Inadequate oral intake aeb ave 46% PO intake over 4 meals r/t pt with a poor appetite 2) Underweight aeb 72% IBW abd BMI of 16.9 kg/m2 r/t energy intake less than energy needs Comments Will continue to monitor PO status, skin status, pertinent labs and weight trends. Will f/u in 3-5 days. 1) If pt appetite remains negligible over the next 48 hours consider Osmolite 1.2 @ 50 ml/hr goal rate as tolerated and per MD approval 2) If pt appetite remains <50% PO intake, consider nutrition supplement Ensure Enlive 1 ctn bid. 3) Consider prostat 1 packet bid as alb is low 4) Continue current plan of care
[2020-04-16 12:00] VITALS: BP 134/73
--- NOTE | 2020-04-16 12:00 | NUR ---
WOUND CARE NOTE: IN TO SEE PATIENT AT THIS TIME PER WOUND CARE CONSULT REQUEST. PATIENT ADMITTED TO [facility] WITH DIAGNOSIS OF COVID 19, HYPERGLYCEMIA, UTI. PATIENT HAS CURRENT MARVIN SCORE OF 12. PATIENT NOTED TO BE VERY THIN, WEIGHING ONLY 45.KG. COCCYX IS VERY PROMINENT. NO WOUNDS NOTED. PATIENT HAS AN INTERTRIGINOUS RASH TO THE BILATERAL UPPER MEDIAL THIGHS, GROIN. SKIN IS BRIGHT RED, NO OPEN AREAS NOTED. APPLIED ANTIFUNGAL CLEAR OINTMENT. PATIENT'S BILATERAL HEELS ARE RED BUT BLANCHABLE. ADVISED BEDSIDE NURSE TO APPLY YESSI FOAM BOOTS TO PATIENT'S FEET/HEELS. NO OTHER SKIN INTEGRITY ISSUES NOTED AT THIS TIME. WOUND PHOTO TAKEN AT TIME OF ADMIT BY BEDSIDE NURSE FOR REFERENCE. RECOMMEND: FREQUENT TURN SCHEDULE Q 2 HOURS, PRN CONDITION PERMITS, WITH PRESSURE REDISTRIBUTION USING PILLOWS/WEDGES, COVERING UPPER MEDIAL SACRUM WITH OPTIFOAM GENTLE DRESSING, SPECIALTY AIR MATTRESS, YESSI FOAM BOOTS TO BILATERAL FEET/HEELS, BID/PRN APPLICATION WITH ANTIFUNGAL CLEAR BARRIER CREAM TO RED RASH AREAS, SKIN/WOUND CARE PLAN, CONTINUED MONITORING BY WOUND CARE TEAM. Addendum: 04/16/20 at 1524 by Jess Mccloud RN Amended: Links added.
[2020-04-16 17:00] VITALS: BP 117/70
[2020-04-16] MEDS ORDERED: ACETAMINOPHEN 325 MG TAB PO PRN (18:45)
--- NOTE | 2020-04-16 19:40 | NUR ---
Opening Shift Note Assumed care of patient, awake and alert. No S/S of distress/SOB or pain. Patient moved to a speciality mattressed and patient on possey boots. Instructed on POC and to call for assist PRN, will continue to monitor for changes Q1hr and PRN.
[2020-04-16 20:00] VITALS: BP 140/72
[2020-04-16 21:49] VITALS: BP 140/72
[2020-04-17 05:09] VITALS: BP 135/79
[2020-04-17] MEDS: PIPERACILLIN-TAZO 4.5GM 100 ML IV SCH ×3 (05:51→21:45)
--- NOTE | 2020-04-17 06:00 | NUR ---
Wound Care & BM Patient had a BM. Patient cleaned, changed and reposition.
[2020-04-17] MEDS: ALBUTEROL SULF HFA 90MCG INH 200DOSE IN SCH ×3 (06:45→23:35)
[2020-04-17] MEDS: BUDESONIDE (INHALATION) 180 MCG IH IN SCH ×2 (06:45→23:35)
--- NOTE | 2020-04-17 07:40 | NUR ---
OPENING NOTE ASSUMED CARE OF PT. ALERT AND ORIENTED. NO S/S OF SOB/DISTRESS NOTED. BED SET TO LOWEST POSITION/LOCKED. BEDSIDE RAILS UP X2. CALL LIGHT WITHIN REACH. INSTRUCTED PT TO CALL FOR ASSISTANCE. PT VERBALIZED UNDERSTANDING. WILL CONTINUE TO MONITOR Q 1HR AND PRN.
[2020-04-17] MEDS: Glucerna Carbsteady SHAKE Vanilla 8oz PO SCH ×3 (08:12→18:00)
[2020-04-17 09:00] VITALS: BP 129/71
[2020-04-17 09:02] LABS: Calcium 7.9 mg/dL (8.5-10.1)
[2020-04-17] MEDS: ENOXAPARIN SOD 40 MG/0.4 ML SYRINGE SC SCH ×2 (10:13→21:45)
[2020-04-17] MEDS: DexAMETHasone SOD PHOS 10MG/1ML VIAL INJ IV SCH (10:14)
[2020-04-17] MEDS: DOXYCYCLINE 100 MG TAB/CAP PO SCH ×2 (10:14→21:45)
[2020-04-17] MEDS: ZINC SULFATE 220mg CAP or TAB PO SCH (10:14)
[2020-04-17] MEDS: ASCORBIC ACID 1,000 MG TAB PO SCH (10:14)
[2020-04-17 13:09] VITALS: BP 138/63
[2020-04-17 17:22] VITALS: BP 135/88
[2020-04-17 20:00] VITALS: BP 131/69
[2020-04-17 22:00] VITALS: BP 131/69
[2020-04-18 05:00] VITALS: BP 130/71
[2020-04-18] MEDS: PIPERACILLIN-TAZO 4.5GM 100 ML IV SCH ×3 (05:17→22:30)
[2020-04-18] MEDS: BUDESONIDE (INHALATION) 180 MCG IH IN SCH ×2 (07:01→20:30)
[2020-04-18] MEDS: ALBUTEROL SULF HFA 90MCG INH 200DOSE IN SCH ×4 (07:01→20:30)
[2020-04-18] MEDS: Glucerna Carbsteady SHAKE Vanilla 8oz PO SCH ×3 (08:13→18:19)
[2020-04-18 08:35] VITALS: BP 125/75
[2020-04-18] MEDS: DexAMETHasone SOD PHOS 10MG/1ML VIAL INJ IV SCH (09:37)
[2020-04-18] MEDS: ENOXAPARIN SOD 40 MG/0.4 ML SYRINGE SC SCH (09:37)
[2020-04-18] MEDS: ASCORBIC ACID 1,000 MG TAB PO SCH (09:37)
[2020-04-18] MEDS: DOXYCYCLINE 100 MG TAB/CAP PO SCH ×2 (09:37→22:30)
[2020-04-18] MEDS: ZINC SULFATE 220mg CAP or TAB PO SCH (09:37)
[2020-04-18 12:10] VITALS: BP 118/70
[2020-04-18] MEDS ORDERED: PANTOPRAZOLE 40 MG/10 ML VIAL INJ IV ONE (13:15)
[2020-04-18 13:56] VITALS: BP 118/70
[2020-04-18 16:47] VITALS: BP 123/73
[2020-04-18 22:00] VITALS: BP 122/61
--- NOTE | 2020-04-18 22:40 | NUR ---
Sacrum Blanchable erythema noted to patient's sacrum. Sacrum cleansed with clean soap and water, zgaurd and optifoam applied over sacrum as preventive measure. Patients inner thigh cleaned with clean soap and water and antifungal cream was applied to bilateral inner thighs. Patient tolerated well.
[2020-04-19 05:00] VITALS: BP 102/62
--- NOTE | 2020-04-19 05:00 | NUR ---
Bowel Movement Patient had a small bowel movement. Patient cleaned with soap and water, patted dry, zguard and Optifoam applied over sacrum. Antifungal cream applied to bilateral inner folds. Patient tolerated well.
[2020-04-19] MEDS: PIPERACILLIN-TAZO 4.5GM 100 ML IV SCH ×3 (05:08→22:36)
[2020-04-19] MEDS: ALBUTEROL SULF HFA 90MCG INH 200DOSE IN SCH ×3 (07:11→22:22)
[2020-04-19] MEDS: BUDESONIDE (INHALATION) 180 MCG IH IN SCH ×2 (07:12→22:22)
[2020-04-19] MEDS: Glucerna Carbsteady SHAKE Vanilla 8oz PO SCH ×3 (08:00→18:00)
[2020-04-19 08:25] VITALS: BP 91/50
[2020-04-19] MEDS: ZINC SULFATE 220mg CAP or TAB PO SCH (09:17)
[2020-04-19] MEDS: DexAMETHasone SOD PHOS 10MG/1ML VIAL INJ IV SCH (09:17)
[2020-04-19] MEDS: PANTOPRAZOLE 40 MG/10 ML VIAL INJ IV SCH (09:17)
[2020-04-19] MEDS: ASCORBIC ACID 1,000 MG TAB PO SCH (09:18)
[2020-04-19] MEDS: DOXYCYCLINE 100 MG TAB/CAP PO SCH ×2 (09:18→22:36)
[2020-04-19 12:36] VITALS: BP 126/82
--- NOTE | 2020-04-19 12:46 | NUR ---
Nutrition Consult/Followup Notes Wt: 44.4 kg Unable to speak to pt d/t pt is positive for COVID. Pt is with a Mech soft diet, with still inadequate po intake aeb pt with 50% avg po intake 04/17-04/18 per RN note. Pt with Glucerna 1 carton TID. Consider alternate nutrition if pt continues to have poor po intake. Est Energy needs: [id number] kcals (25-30 kcal/kgBW) d/t pt is underweight, Est Protein needs: 70-77 gms/day (1.0-1.1 gm/kgIBW) d/t pt is underweight. Will continue to monitor and reassess prn. LABS: BUN 47H, GLUC 118H, Ca 7.9L, Alb 2.1L GI: Pt with 1 BM reported 04/19 per RN doc BS: 15 mod risk. Refer to wound assessment report for full details. PES: 1) Partially resolved: Inadequate oral intake aeb ave 46% PO intake over 4 meals r/t pt with a poor appetite 2) Underweight aeb 72% IBW abd BMI of 16.9 kg/m2 r/t energy intake less than energy needs Comments Will continue to monitor PO status, skin status, pertinent labs and weight trends. Will f/u in 3-5 days. 1) Pt appetite is partially improved 04/17-04/18, will continue to monitor need for alternate nutrition, consider Osmolite 1.2 @ 50 ml/hr goal rate as tolerated and per MD approval 2) If pt appetite remains <50% PO intake, consider nutrition supplement Ensure Enlive 1 ctn bid. -pt is with Glucerna 1 carton TID per MD order 3) Consider prostat 1 packet bid as alb is low 4) Continue current plan of care
--- NOTE | 2020-04-19 14:09 | NUR ---
COVID SWAB IN-HOUSE COVID SWAB COLLECTED AND WALKED TO LAB BY LEEANNE ODELL).
--- NOTE | 2020-04-19 15:31 | NUR ---
HOSPICE SPOKE TO KATRIN FROM [facility] . PER KATRIN PLEASE CALL WITH GI SWAB RESULTS AND IF PATIENTS RESULTS ARE NEGATIVE PATIENT WILL BE TRANSPORTED HOME WITH FAMILY, IF POSITIVE PATIENT WILL GO TO [facility] AND THERE IS A PROCESS FOR THIS TRANSFER. Addendum: 04/19/20 at 3065 by Dolores Hernandez RN AFTER HOURS CALL KATRIN AT
--- NOTE | 2020-04-19 15:46 | NUR ---
re-assessment Per consult hospice eval. I spoke to patients daughter Milady and informed her of consult. I have read Milady a list of medicare providers. Per Milady she wants to speak with Milady from [facility] [phone]. I sent orders to [facility] Milady [phone] has spoke with daughter Milady and they have agreed to hospice. Rosaura MONTAGUE has done another covid test. If patient is negative he will return home with family. If patient is positive he will be placed at [facility] on hospice. waiting on covid test now. If patient is negative he will have to be moved out of the covid unit for transportation. Helena sanderson RN notified as well as Rosaura. Addendum: 04/19/20 at 1550 by Leidy Durand Amended: Links added.
[2020-04-19 16:41] VITALS: BP 123/74
--- NOTE | 2020-04-19 18:23 | NUR ---
COVID RESULTS RECEIVED CALL FROM [facility] FROM [facility], INFORMED THIS NURSE RESULTS FOR COVID ARE POSITIVE. WILL INFORM KATRIN FROM [facility].
--- NOTE | 2020-04-19 18:27 | NUR ---
HOSPICE SPOKE TO KATRIN FROM [facility] RE: COVID TEST RESULTS. PER KATRIN SHE WILL CALL MADIHA (CORI) TOMORROW FOR DISCHARGE PLANNING.
[2020-04-19 22:00] VITALS: BP 125/78
[2020-04-20 05:00] VITALS: BP 123/71
[2020-04-20] MEDS: PIPERACILLIN-TAZO 4.5GM 100 ML IV SCH ×2 (06:12→14:00)
--- NOTE | 2020-04-20 07:05 | NUR ---
OPENING SHIFT NOTE ASSUMED CARE OF PATIENT FROM NAVIGATING OFFICER RN NOEL. PATIENT HAS NO S/S OF DISTRESS/SOB OR PAIN. PATIENT IS AWAKE AND ALERT X2 (PERSON AND SITUATION). REORIENTED PATIENT TO TIME AND PLACE. INSTRUCTED PATIENT ON POC, PATIENT VERBALIZED UNDERSTANDING. BED IS IN LOWEST POSITION WITH SIDE RAILS RAISED X2, BED WHEELS LOCKED, AND CALL LIGHT IS WITHIN REACH. WILL CONTINUE TO MONITOR.
[2020-04-20 07:36] VITALS: BP 128/70
[2020-04-20] MEDS: ALBUTEROL SULF HFA 90MCG INH 200DOSE IN SCH ×2 (07:51→14:14)
[2020-04-20] MEDS: BUDESONIDE (INHALATION) 180 MCG IH IN SCH (07:51)
[2020-04-20] MEDS: Glucerna Carbsteady SHAKE Vanilla 8oz PO SCH ×2 (08:01→12:00)
[2020-04-20 09:00] VITALS: BP 127/70
[2020-04-20] MEDS: PANTOPRAZOLE 40 MG/10 ML VIAL INJ IV SCH (10:22)
[2020-04-20] MEDS: ZINC SULFATE 220mg CAP or TAB PO SCH (10:23)
[2020-04-20] MEDS: ASCORBIC ACID 1,000 MG TAB PO SCH (10:23)
[2020-04-20] MEDS: DOXYCYCLINE 100 MG TAB/CAP PO SCH (10:23)
[2020-04-20] MEDS: DexAMETHasone SOD PHOS 10MG/1ML VIAL INJ IV SCH (10:23)
--- NOTE | 2020-04-20 12:39 | NUR ---
RECEIVED CALL FROM BRYSON FROM [facility]. PER BRYSON PATIENT WILL BE TRANSFERRED TO [facility]. WILL AWAIT FOR [facility] FOR TRANSPORTATION AND TIME.
[2020-04-20 13:00] VITALS: BP 115/78
--- NOTE | 2020-04-20 14:00 | NUR ---
RECEIVED CALL FROM [facility] PER [facility] WILL TRANSFER PATIENT AT 1500.
[2020-04-20 14:29] VITALS: BP 115/78
--- NOTE | 2020-04-20 15:59 | NUR ---
Discharge instructions given as ordered. Encourage to follow up with PMD as instructed. All questions and concerns addressed. Patient verbalized understanding. Medication reconciliation form completed and copy given to patient. IV removed with catheter intact, pressure dressing applied. Telemetry unit returned to ICU. Patient taken to vehicle via gurney with all personal belongings, accompanied by transportation staff. No distress noted at time of departure.
== END 2020-04-20 16:00 | disposition hospice, inpatient (51) | DRG 871 ==
LOC: ER 17:10 → OVERFLOW 17:11 → EAST 04-06 04:05 → TELE-EAST 04-15 11:16
PROVIDERS: ADMIT Hospitalist; ATTEND Internal Medicine Nephrology
PROC: XW033E5 Introduction of Remdesivir Anti-infective into Peripheral Vein, Percutaneous Approach, New Technology Group 5 (ICD-10-PCS; 2020-04-09)
PROC: XW13325 Transfusion of Convalescent Plasma (Nonautologous) into Peripheral Vein, Percutaneous Approach, New Technology Group 5 (ICD-10-PCS; principal; 2020-04-11)
DX: A41.89 Other specified sepsis (principal); U07.1 COVID-19; J12.89 Other viral pneumonia; J96.01 Acute respiratory failure with hypoxia; J69.0 Pneumonitis due to inhalation of food and vomit; N39.0 Urinary tract infection, site not specified; E44.0 Moderate protein-calorie malnutrition; Z68.1 Body mass index [BMI] 19.9 or less, adult; R65.20 Severe sepsis without septic shock; R73.9 Hyperglycemia, unspecified; I10 Essential (primary) hypertension; E87.6 Hypokalemia; R54 Age-related physical debility; R63.0 Anorexia; Z66 Do not resuscitate; R31.29 Other microscopic hematuria; R91.8 Other nonspecific abnormal finding of lung field
CPT/HCPCS: 36415; 36600; 71045; 71275; 80048; 80053; 81001; 82728; 82805; 82962; 83036; 83615; 83735; 83880; 84484; 85025; 85379; 85610; 85730; 86141; 86850; 86900; 86901; 87040; 87426; 92610; 93005; 94640; 96365; C9113; G0378; J1100; J1956; J2543; J3490